=== PATIENT | female | born 1995 | race Caucasian/White ===

== ENCOUNTER 2016-10-27 21:14 | Emergency (ER) | payer MEDICAID ==
[2015-08-27 05:21] VITALS: BMI 34.3
[~2016-10-27 21:14] MED LIST: HYDROCODON-ACE1 EAC7 PO; IBUPROFEN600 MG PO; PRENAVITE1 TAB PO
== END 2016-10-27 22:00 | disposition home or self-care (01) ==
LOC: D.ER 21:14
DX: J20.9 Acute bronchitis, unspecified (principal); J06.9 Acute upper respiratory infection, unspecified; F17.200 Nicotine dependence, unspecified, uncomplicated